=== PATIENT | male | born 1955 | race Caucasian/White ===

== ENCOUNTER → 2016-11-30 | Outpatient (CLI) | payer BC ==
--- NOTE | 2016-11-30 10:20 | MRI ---
EXAM DESCRIPTION: Lumbar Spine w/wo Contrast CLINICAL HISTORY: LOW BACK PAIN radiating to both lower extremities, worse on the right side. History of bladder carcinoma currently on chemotherapy COMPARISON: None Available. TECHNIQUE: MRI of the lumbar spine is performed according to our usual protocol with axial and sagittal multi sequence imaging. Postcontrast imaging after gadolinium enhancement was performed. FINDINGS: Vertebral and disc height is maintained with what appears to be a transitional S1 vertebral segment and rudimentary nonmobile S1-S2 disc space. Alignment is satisfactory with very slight retrolisthesis evident at the L5-S1 level. Disc desiccation and endplate irregularity is present at the lower three disc spaces with endplate edematous changes noted anteriorly at L4-5 and L5-S1 with some postcontrast enhancement in this region that does not have the appearance of metastatic disease. No intradural or intramedullary abnormalities are noted and the conus is positioned at the upper L1 level. L1-2: the disc is well hydrated. There is no loss of height. There is no bulging. The facets are unremarkable with no significant hypertrophy. There is no stenosis or impingement. L2-3: the disc is well hydrated. There is no loss of height. There is no bulging. The facets are unremarkable with no significant hypertrophy. There is no stenosis or impingement. L3-4: Disc desiccation with mild symmetric annular bulge and thecal sac in the lower range of normal with mild facet hypertrophy and adequate right and left neural foramina without severe stenosis. L4-5: Advanced disc degeneration with broad-based annular bulge and advanced facet hypertrophy. AP diameter canal stenosis is accentuated by mild epidural lipomatosis posterior to the thecal sac. Mildly narrowed left L4 neural foramen and moderately narrowed multifactoral right L4 neural foramen. L5-S1: Advanced disc degeneration and desiccation with broad-based annular bulge and advanced facet arthropathy with thecal sac lower limits of normal with moderate bilateral L5 foraminal narrowing on a multifactorial basis without lateralizing herniation. Postcontrast imaging demonstrates enhancement related to the endplates at L4-5 and L5-S1 without a pattern to suggest metastatic disease from the patient's known bladder carcinoma. IMPRESSION: 1. Multilevel lower lumbar degenerative disc disease and facet arthropathy with annular bulge and thecal sac lower limits of normal at L3-4. 2. Moderate broad-based annular bulge and facet disease with a moderate AP diameter canal stenosis L4-5 and right greater than left foraminal stenosis endplate reactive edematous changes that demonstrates some enhancement within a nontumoral pattern. 3. Annular bulge L5-S1 with thecal sac lower limits of normal with moderate bilateral L5 foraminal narrowing. 4. Transitional S1-S2 disc space that is nonmobile and rudimentary. 5. Normal examination from L2 to 3 cephalad. Electronically signed by: Zafar Walters MD 11/30/2016 10:12 AM CDT
== END | disposition home or self-care (01) ==
LOC: MRI 06:55
DX: M47.896 Other spondylosis, lumbar region (principal)

== ENCOUNTER 2017-05-28 04:04 | Emergency (ER) | payer BC ==
[2017-05-28] MEDS ORDERED: SODIUM CHLORIDE 0.9% 1000ML 0 ML ONE (04:08)
--- NOTE | 2017-05-28 04:20 | ED.PDOC ---
History of Present Illness - General Chief Complaint: Problem Stated Complaint: gross hematuria Time Seen by Provider: 05/28/17 04:12 Source: patient Exam Limitations: no limitations - History of Present Illness Initial Comments: Aric Viera 62 y/o male stated that he had biopsy of his urinary bladder in [place], [place] hospital today by Urologist Dr. Alonzo and tonight was passing out blood clots on urinating.Stated has Urinary bladder cancer underwent chemotherapy and had repeat biopsy of his bladder today at [facility]. Timing/Duration: this evening Quality: sharpness, stabbing Onset Location: suprapubic Radiation: none Activites at Onset: none Prior abdominal problems: none Sexual intercourse history: not active Improving Factors: nothing Worsening Factors: other - urination Associated Symptoms: other - see hpi Allergies/Adverse Reactions: Allergies NO KNOWN ALLERGY Allergy (Verified 05/28/17 04:43) Home Medications: Ambulatory Orders Aliskiren Fumarate [Tekturna] 300 mg PO BEDTIME 12/21/14 Aspirin [Baby Aspirin] 81 mg PO DAILY 12/21/14 Carvedilol [Coreg] 12.5 mg PO DAILY 12/21/14 Cholecalciferol [Vitamin D3] 5,000 unit PO DAILY 12/21/14 Levothyroxine Sodium 150 mcg PO DAILY 12/21/14 Metformin HCl [Glucophage] 1,000 mg PO BID 12/21/14 Pramipexole Dihydrochloride [Pramipexole Dihydrochlori] 0.25 mg PO BID 12/21/14 Ramipril [Altace] 40 mg PO DAILY 12/21/14 Rosuvastatin Calcium [Crestor] 10 mg PO DAILY 12/21/14 Sitagliptin Phosphate [Januvia] 100 mg PO DAILY 12/21/14 Fenofibric Acid [Trilipix] 135 mg PO DAILY 12/22/14 Azithromycin 500 mg PO DAILY #7 tab 08/14/15 Ipratropium/Albuterol Inhaler [Combivent Respimat 20-100 Mcg/Act] 2 puff INH RTQID #1 inh 08/14/15 predniSONE [Prednisone] 20 mg PO DAILY #5 tab 08/14/15 Review of Systems - Review of Systems Constitutional: States: no symptoms reported EENTM: States: no symptoms reported Respiratory: States: no symptoms reported Cardiology: States: no symptoms reported Gastrointestinal/Abdominal: States: no symptoms reported Genitourinary: States: see HPI Past Medical History (General) - Patient Medical History Hx Stroke: No Hx Cardiac Disorders: Yes - cardiac stent Hx Congestive Heart Failure: No Hx Hypertension: Yes Hx Thyroid Disease: Yes Hx Diabetes: Yes Hx Cancer: Yes - Urinary bladder Surgical History: tonsillectomy, other - biopsy urinary bladder,cardiac stents - Vaccination History Hx Influenza Vaccination: No Hx Pneumococcal Vaccination: No - Social History Hx Tobacco Use: Yes Family Medical History - Family History Father Living Status: Hx Family Diabetes: Yes Hx Family Cancer: Yes - colon;Thyroid-mom Physical Exam - Physical Exam General Appearance: Alert, Anxious, Restless Eyes, Ears, Nose, Throat Exam: PERRL/EOMI, normal ENT inspection Neck: non-tender, full range of motion, supple Cardiovascular/Respiratory: regular rate, rhythm, no M/R/G, normal peripheral pulses Gastrointestinal/Abdominal: soft, tenderness - suprapubic area bladder distended Male Genital Exam: normal genitalia Back Exam: no CVA tenderness, no vertebral tenderness Extremity: no pedal edema, no calf tenderness Neurologic: alert, oriented x 3 Skin Exam: normal color, warm/dry Progress - Progress Progress: 05/28/17 05:14 Bladder irrigation by the nurses with bloody urine mixed with blood clots 1200 cc bloody output admixed with saline irrigation 05/28/17 05:19 Vital Signs - 8 hr 05/28/17 04:05 Temperature 97.4 F L Pulse Rate [ 114 H monitor] Respiratory 22 Rate Blood Pressure 166/97 [Left Arm] O2 Sat by Pulse 100 Oximetry 05/28/17 05:53 Laboratory Tests 05/28/17 05/28/17 05/28/17 04:45 04:45 04:45 WBC 9.3 RBC 3.48 L Hgb 12.1 L Hct 34.6 L MCV 99.4 H MCH 34.7 H MCHC 34.9 RDW 12.9 Plt Count 173 MPV 8.9 Absolute Neuts (auto) 8.10 H Absolute Lymphs (auto) 0.70 L Absolute Monos (auto) 0.50 Absolute Eos (auto) 0.10 Absolute Basos (auto) 0.00 Neutrophils % 86.4 H Lymphocytes % 7.4 L Monocytes % 5.1 Eosinophils % 0.7 L Basophils % 0.4 PT INR PTT (SP) 25.8 Sodium 132 L Potassium 4.4 Chloride 101 Carbon Dioxide 21 Anion Gap 14.4 BUN 22 H Creatinine 1.73 H BUN/Creatinine Ratio 12.7 Random Glucose 279 H Serum Osmolality 277.9 Calcium 9.5 Total Bilirubin 0.7 AST 27 ALT 20 Alkaline Phosphatase 39 L Serum Total Protein 6.4 Albumin 4.1 Globulin 2.3 Albumin/Globulin Ratio 1.8 05/28/17 04:45 WBC RBC Hgb Hct MCV MCH MCHC RDW Plt Count MPV Absolute Neuts (auto) Absolute Lymphs (auto) Absolute Monos (auto) Absolute Eos (auto) Absolute Basos (auto) Neutrophils % Lymphocytes % Monocytes % Eosinophils % Basophils % PT 12.4 INR 1.100 PTT (SP) Sodium Potassium Chloride Carbon Dioxide Anion Gap BUN Creatinine BUN/Creatinine Ratio Random Glucose Serum Osmolality Calcium Total Bilirubin AST ALT Alkaline Phosphatase Serum Total Protein Albumin Globulin Albumin/Globulin Ratio - Results/Orders Results/Orders: Laboratory Tests 05/28/17 05/28/17 05/28/17 04:45 04:45 04:45 WBC 9.3 RBC 3.48 L Hgb 12.1 L Hct 34.6 L MCV 99.4 H MCH 34.7 H MCHC 34.9 RDW 12.9 Plt Count 173 MPV 8.9 Absolute Neuts (auto) 8.10 H Absolute Lymphs (auto) 0.70 L Absolute Monos (auto) 0.50 Absolute Eos (auto) 0.10 Absolute Basos (auto) 0.00 Neutrophils % 86.4 H Lymphocytes % 7.4 L Monocytes % 5.1 Eosinophils % 0.7 L Basophils % 0.4 PT INR PTT (SP) 25.8 Sodium 132 L Potassium 4.4 Chloride 101 Carbon Dioxide 21 Anion Gap 14.4 BUN 22 H Creatinine 1.73 H BUN/Creatinine Ratio 12.7 Random Glucose 279 H Serum Osmolality 277.9 Calcium 9.5 Total Bilirubin 0.7 AST 27 ALT 20 Alkaline Phosphatase 39 L Serum Total Protein 6.4 Albumin 4.1 Globulin 2.3 Albumin/Globulin Ratio 1.8 05/28/17 04:45 WBC RBC Hgb Hct MCV MCH MCHC RDW Plt Count MPV Absolute Neuts (auto) Absolute Lymphs (auto) Absolute Monos (auto) Absolute Eos (auto) Absolute Basos (auto) Neutrophils % Lymphocytes % Monocytes % Eosinophils % Basophils % PT 12.4 INR 1.100 PTT (SP) Sodium Potassium Chloride Carbon Dioxide Anion Gap BUN Creatinine BUN/Creatinine Ratio Random Glucose Serum Osmolality Calcium Total Bilirubin AST ALT Alkaline Phosphatase Serum Total Protein Albumin Globulin Albumin/Globulin Ratio Discuss with Dr. Alonzo-Oncologic Urologist and he will see patient at his clinic today 0930 H and may go with POV Departure - Departure Clinical Impression: Postoperative hemorrhage involving genitourinary system following genitourinary procedure, Gross hematuria, History of bladder cancer Time of Disposition: 06:43 Disposition: Discharge to Home or Self Care Condition: Fair Departure Forms: ED Discharge - Pt. Copy, Patient Portal Self Enrollment Referrals: Jayro Chong MD [Primary Care Provider] - 1-2 Weeks Home Medications: Ambulatory Orders Aliskiren Fumarate [Tekturna] 300 mg PO BEDTIME 12/21/14 Aspirin [Baby Aspirin] 81 mg PO DAILY 12/21/14 Carvedilol [Coreg] 12.5 mg PO DAILY 12/21/14 Cholecalciferol [Vitamin D3] 5,000 unit PO DAILY 12/21/14 Levothyroxine Sodium 150 mcg PO DAILY 12/21/14 Metformin HCl [Glucophage] 1,000 mg PO BID 12/21/14 Pramipexole Dihydrochloride [Pramipexole Dihydrochlori] 0.25 mg PO BID 12/21/14 Ramipril [Altace] 40 mg PO DAILY 12/21/14 Rosuvastatin Calcium [Crestor] 10 mg PO DAILY 12/21/14 Sitagliptin Phosphate [Januvia] 100 mg PO DAILY 12/21/14 Fenofibric Acid [Trilipix] 135 mg PO DAILY 12/22/14 Azithromycin 500 mg PO DAILY #7 tab 08/14/15 Ipratropium/Albuterol Inhaler [Combivent Respimat 20-100 Mcg/Act] 2 puff INH RTQID #1 inh 08/14/15 predniSONE [Prednisone] 20 mg PO DAILY #5 tab 08/14/15 Additional Instructions: Keep appointment with Oncologic Urologist at 0930H today
[2017-05-28] MEDS ORDERED: PROMETHAZINE HCL INJ 25 MG/ML VIAL IM ONE ×2 (04:21→06:34)
[2017-05-28] MEDS: MORPHINE SULFATE INJ 10 MG/ML VIAL IM ONE ×2 (04:28→06:38)
[2017-05-28] MEDS ORDERED: SODIUM CHLORIDE 0.9% 1000ML 1,000 ML ONE ×2 (05:12→05:36)
[2017-05-28 05:17] VITALS: TEMP 97.4
[2017-05-28 05:23] VITALS: O2SAT 98
[2017-05-28] MEDS ORDERED: LIDOCAINE 2 % GEL 5 ML TUBE TOP ONE ×3 (06:16→06:41)
[2017-05-28] MEDS ORDERED: LIDOCAINE 4% TOPICAL 50 ML BTTL TOP ONE (06:26)
[2017-05-28] MEDS ORDERED: LIDOCAINE 2% UROJET 20 MG/ML SYG TOP ONE (06:33)
[2017-05-28] MEDS ORDERED: MORPHINE SULFATE INJ 10 MG/ML VIAL IV ONE (06:34)
[2017-05-28] MEDS ORDERED: PROMETHAZINE HCL INJ 25 MG/ML VIAL ONE (06:37)
[2017-05-28] MEDS ORDERED: MORPHINE SULFATE INJ 10 MG/ML VIAL ONE (06:37)
[2017-05-28 07:08] VITALS: BP 113/74
== END 2017-05-28 07:03 | disposition home or self-care (01) ==
LOC: ER 04:04
DX: N99.820 Postprocedural hemorrhage of a genitourinary system organ or structure following a genitourinary system procedure (principal); C67.9 Malignant neoplasm of bladder, unspecified; I10 Essential (primary) hypertension; E07.9 Disorder of thyroid, unspecified; Z98.61 Coronary angioplasty status; Z79.82 Long term (current) use of aspirin; Z79.899 Other long term (current) drug therapy
CPT/HCPCS: 36415; 80053; 85025; 85610; 85730; J2270; J2550; J7030

== ENCOUNTER 2017-09-17 21:46 | Emergency (ER) | payer BC ==
[2017-09-17] MEDS ORDERED: FAMOTIDINE 20 MG TAB PO ONE (22:04)
[2017-09-17] MEDS ORDERED: predniSONE 20 MG TAB PO ONE (22:04)
[2017-09-17] MEDS ORDERED: ONDANSETRON ODT 8 MG TAB SL ONE (22:04)
[2017-09-17] MEDS ORDERED: OSELTAMIVIR 75 MG CAP PO ONE (22:05)
[2017-09-17] MEDS ORDERED: HYDROcodone 10MG/APAP 325MG 1 EA TAB PO ONE (22:05)
--- NOTE | 2017-09-17 22:09 | ED.PDOC ---
History of Present Illness - General Chief Complaint: GI Problem Stated Complaint: vomiting Time Seen by Provider: 09/17/17 21:56 Source: patient Exam Limitations: no limitations - History of Present Illness Initial Comments: the patient is 62-year-old male presenting to the emergency room secondary to a worsening of his chronic low back pain associated with generalized myalgias, a cough, mild runny nose, a mild headache, mild sore throat, and occasional nausea and vomiting over the last 24 hours. He has been taking Motrin and Tylenol for his low back painand so is technically not had any fever. No history significant history of COPD he does have a distant history of asthma. No chest pain and no shortness of breath. No abdominal pain. Back pain is unchanged in position from his chronic problems. He has a muscle relaxer from his primary care doctor written earlier in the week. Timing/Duration: 24 hours Severity: moderate Improving Factors: nothing Worsening Factors: nothing Associated Symptoms: cough, fever/chills, headaches, loss of appetite, malaise, nausea/vomiting Allergies/Adverse Reactions: Allergies NO KNOWN ALLERGY Allergy (Verified 05/28/17 04:43) Home Medications: Ambulatory Orders Aliskiren Fumarate [Tekturna] 300 mg PO BEDTIME 12/21/14 Aspirin [Baby Aspirin] 81 mg PO DAILY 12/21/14 Carvedilol [Coreg] 12.5 mg PO DAILY 12/21/14 Cholecalciferol [Vitamin D3] 5,000 unit PO DAILY 12/21/14 Levothyroxine Sodium 150 mcg PO DAILY 12/21/14 Metformin HCl [Glucophage] 1,000 mg PO BID 12/21/14 Pramipexole Dihydrochloride [Pramipexole Dihydrochlori] 0.25 mg PO BID 12/21/14 Ramipril [Altace] 40 mg PO DAILY 12/21/14 Rosuvastatin Calcium [Crestor] 10 mg PO DAILY 12/21/14 Sitagliptin Phosphate [Januvia] 100 mg PO DAILY 12/21/14 Fenofibric Acid [Trilipix] 135 mg PO DAILY 12/22/14 Azithromycin 500 mg PO DAILY #7 tab 08/14/15 Ipratropium/Albuterol Inhaler [Combivent Respimat 20-100 Mcg/Act] 2 puff INH RTQID #1 inh 08/14/15 predniSONE [Prednisone] 20 mg PO DAILY #5 tab 08/14/15 Review of Systems - Review of Systems Constitutional: States: fever - subjective, malaise EENTM: States: nose congestion, throat pain Respiratory: States: cough Cardiology: States: no symptoms reported Gastrointestinal/Abdominal: States: vomiting Genitourinary: States: no symptoms reported Musculoskeletal: States: see HPI, back pain Skin: States: no symptoms reported Neurological: States: headache - mild Endocrine: States: no symptoms reported All other Systems: No Change from Baseline Past Medical History (General) - Patient Medical History Hx Seizures: No Hx Stroke: No Hx Dementia: No Hx Asthma: No Hx of COPD: No Hx Cardiac Disorders: Yes - cardiac stent Hx Congestive Heart Failure: No Hx Pacemaker: No Hx Hypertension: Yes Hx Thyroid Disease: Yes Hx Diabetes: Yes Hx Gastroesophageal Reflux: No Hx Renal Disease: No Hx Cancer: Yes - Urinary bladder Hx of HIV: No Hx Hepatitis C: No Hx MRSA: No - Vaccination History Hx Tetanus, Diphtheria Vaccination: No Hx Influenza Vaccination: No Hx Pneumococcal Vaccination: No - Social History Hx Tobacco Use: Yes Hx Chewing Tobacco Use: No Hx Alcohol Use: Yes - social Hx Substance Use: No Hx Substance Use Treatment: No Hx Depression: No Hx Physical Abuse: No Hx Emotional Abuse: No Hx Suspected Abuse: No Family Medical History - Family History Father Living Status: Hx Family Diabetes: Yes Hx Family Cancer: Yes - colon;Thyroid-mom Physical Exam - Physical Exam General Appearance: Alert, No apparent distress Eye Exam: bilateral normal Ears, Nose, Throat: hearing grossly normal, nasal congestion, pharyngeal erythema Neck: full range of motion, supple, normal inspection Respiratory: no respiratory distress, no accessory muscle use, wheezing - scattered fine wheezes. No increased work of breathing. Minimal fine scattered rhonchi. No significant rails. Cardiovascular/Chest: normal peripheral pulses, regular rate, rhythm, no edema Peripheral Pulses: radial,right: 2+, radial,left: 2+, dorsalis pedis,right: 2+, dorsalis pedis,left: 2+ Gastrointestinal/Abdominal: non tender, soft Rectal Exam: deferred Back Exam: CVA tenderness (R), CVA tenderness (L) Extremity: normal range of motion, non-tender, normal inspection, no pedal edema , normal capillary refill Neurologic: continuity manager II-XII nml as tested, alert, normal mood/affect, oriented x 3 Skin Exam: normal color Comments: Vital Signs - 24 hr 09/17/17 22:06 Temperature 97.6 F Pulse Rate [ 84 Right] Respiratory 18 Rate Blood Pressure 193/94 [Left Arm] O2 Sat by Pulse 95 Oximetry Progress - Progress Progress: 09/17/17 22:10 the patient is a 62-year-old male presenting with a flare of his chronic back pain likely triggered by a viral syndrome. Flu is prevalent in the community so the patient will be treated empirically with Tamiflu for 5 days , as testing is currently unavailable. Additionally he is receiving 1 dose of prednisone here tonight. We will not continue this secondary to his diabetes. He needs to control his blood sugars well and he also needs to follow his blood pressures closely. His blood pressures were elevated here today however it is likely reactive in nature. The patient will be written for the Tamiflu as above. Additionally he needs to take Pepcid twice daily for the next 2 weeks to help reduce any stomach irritation with the medications and he will also be written for some Zofran to control nausea, some Fioricet for his low back pain, and an albuterol inhaler for any asthma flares in the future. The patient is to return to the emergency room for any significant acute worsening. He needs to follow up with his primary care doctor later this week and keep follow-up with his back doctor for his chronic back pain later this week. He needs to not take Tylenol when he is taking the Fioricet as it does have Tylenol in it. He needs to keep himself well hydrated. Departure - Departure Clinical Impression: Viral syndrome Chronic low back pain Qualifiers: Back pain laterality: bilateral Sciatica presence: unspecified whether sciatica present Qualified Code(s): M54.5 - Low back pain; G89.29 - Other chronic pain Disposition: Discharge to Home or Self Care Condition: Fair Departure Forms: ED Discharge - Pt. Copy, Patient Portal Self Enrollment Instructions: DI for Low Back Pain, DI for Viral Syndrome Diet: diabetic diet Activity: increase activity as tolerated Referrals: Jayro Chong MD [Primary Care Provider] - 1-5 Days Home Medications: Ambulatory Orders Aliskiren Fumarate [Tekturna] 300 mg PO BEDTIME 12/21/14 Aspirin [Baby Aspirin] 81 mg PO DAILY 12/21/14 Carvedilol [Coreg] 12.5 mg PO DAILY 12/21/14 Cholecalciferol [Vitamin D3] 5,000 unit PO DAILY 12/21/14 Levothyroxine Sodium 150 mcg PO DAILY 12/21/14 Metformin HCl [Glucophage] 1,000 mg PO BID 12/21/14 Pramipexole Dihydrochloride [Pramipexole Dihydrochlori] 0.25 mg PO BID 12/21/14 Ramipril [Altace] 40 mg PO DAILY 12/21/14 Rosuvastatin Calcium [Crestor] 10 mg PO DAILY 12/21/14 Sitagliptin Phosphate [Januvia] 100 mg PO DAILY 12/21/14 Fenofibric Acid [Trilipix] 135 mg PO DAILY 12/22/14 Azithromycin 500 mg PO DAILY #7 tab 08/14/15 Ipratropium/Albuterol Inhaler [Combivent Respimat 20-100 Mcg/Act] 2 puff INH RTQID #1 inh 08/14/15 predniSONE [Prednisone] 20 mg PO DAILY #5 tab 08/14/15 Additional Instructions: the patient is a 62-year-old male presenting with a flare of his chronic back pain likely triggered by a viral syndrome. Flu is prevalent in the community so the patient will be treated empirically with Tamiflu for 5 days , as testing is currently unavailable. Additionally he is receiving 1 dose of prednisone here tonight. We will not continue this secondary to his diabetes. He needs to control his blood sugars well and he also needs to follow his blood pressures closely. His blood pressures were elevated here today however it is likely reactive in nature. The patient will be written for the Tamiflu as above. Additionally he needs to take Pepcid twice daily for the next 2 weeks to help reduce any stomach irritation with the medications and he will also be written for some Zofran to control nausea, some Fioricet for his low back pain, and an albuterol inhaler for any asthma flares in the future. The patient is to return to the emergency room for any significant acute worsening. He needs to follow up with his primary care doctor later this week and keep follow-up with his back doctor for his chronic back pain later this week. He needs to not take Tylenol when he is taking the Fioricet as it does have Tylenol in it. He needs to keep himself well hydrated.
[2017-09-17 22:12] VITALS: O2SAT 95
[2017-09-17 22:35] VITALS: BP 182/89; TEMP 97.8
== END 2017-09-17 22:34 | disposition home or self-care (01) ==
LOC: ER 21:46
DX: G89.29 Other chronic pain (principal); M54.5 Low back pain; B34.9 Viral infection, unspecified; Z87.891 Personal history of nicotine dependence; I10 Essential (primary) hypertension; E11.9 Type 2 diabetes mellitus without complications; E07.9 Disorder of thyroid, unspecified; Z79.82 Long term (current) use of aspirin; Z79.899 Other long term (current) drug therapy

== ENCOUNTER → 2017-09-25 | Outpatient (CLI) | payer BC ==
--- NOTE | 2017-09-25 14:14 | MRI ---
EXAM DESCRIPTION: Cervical Spine: MRI. CLINICAL HISTORY: RADICULOPATHY COMPARISON: MR scan lumbar spine on the same visit. TECHNIQUE: Multiplanar MRI, multiple sequences, non-contrast High-field. FINDINGS: Minimal hypertrophy of the atlantoaxial joint. Minimal narrowing of the anterior epidural space posterior to the proximal odontoid tip. Atlantooccipital facets are negative. C2-3: Minimal disc desiccation. No bulging. Canal and foramina are patent. Facets are negative. C3-4: Minimal disc desiccation. Tiny posterior midline bulge 2 mm abutting the cord. Mild canal narrowing. Bilateral neural foramina are patent. Facets are unremarkable. C4-5: Disc desiccation and minimal posterior 2 mm disc bulge abutting the cord. Bright T2 signal in the posterior bulging segment of the disc. Bilateral neural foramina are patent. Facets are negative. C5-6: Disc desiccation. Anterior bulging and endplate ridging. Minimal posterior 2 mm bulge abutting the cord. Mild left neural foraminal narrowing. Right neuroforamen patent. Facets are negative. C6-7: Disc desiccation and minimal disc space loss. Posterior midline 3 to 4 mm protrusion impressing on the anterior cord in the midline. Moderate canal narrowing. Right uncinate spur with mild neural foraminal narrowing. Left neuroforamen is patent. Minimal arthrosis left facet. Minimal hypertrophy of the posterior ligaments. Normal signal in the remaining discs with no bulging. Disc spaces preserved. Canal and neural foramina are patent. Facets negative. Spondylosis at T2-3 with anterior disc bulge. Posterior disc bulge. Canal and bilateral neural foraminal narrowing. No cord compression or cord edema. Spine is normally lordotic. Base of the cerebellar tonsils is above the foramen magnum. Paravertebral soft tissues negative.. Vertebral bodies are not compressed at any level. Decreased fatty T1 marrow signal in the C4-C5, C6, T1, and T2 vertebral bodies. Increased signal in these vertebral bodies on the inversion recovery sequence. . No definitive lesions. IMPRESSION: 1. Posterior midline protrusion of the C6-7 disc impressing on the cord and moderate canal narrowing. No cord edema. No definite nerve root impingement. Neuroforamina are not stenotic. 2. Posterior C4-5 disc bulge with annular fissure and mild canal narrowing. Posterior midline C3-4 disc bulge abutting the cord. Posterior C5-6 disc bulge abutting the cord. No canal or neural foraminal stenosis at these levels. 3. Marrow reconversion more likely than infiltrative process in some of the cervical and the upper thoracic vertebra. Correlate clinically for causes of marrow reconversion such as cigarette smoking or steroid therapy. Electronically signed by: Roberto Carlos Boyd MD 09/25/2017 2:13 PM [facility]
--- NOTE | 2017-09-25 15:35 | MRI ---
EXAM DESCRIPTION: Lumbar Spine w/wo Contrast MRI. CLINICAL HISTORY: LOW BACK PAIN, RADICULOPATHY COMPARISON: MRI lumbar spine 11/30/2016. TECHNIQUE: Multiplanar, multiple standard sequences, non contrast MRI, lumbar spine. FINDINGS: Again noted is a transitional partially lumbarized S1 segment with rudimentary S1-S2 disc with normal signal and no bulging. The L5-S1 disc can be seen on axial T2 scan image 10/27. Multiple focal areas of marrow infiltration at every level of the lumbar spine and upper sacrum indicated by focal or diffuse decreased T1 signal with corresponding bright inversion recovery signal. This is a new finding since the prior study. Compression of the L2 vertebral body with diffuse T1 signal loss and almost uniform signal increase on the inversion recovery sequence. Bilateral pedicle bases also show increased inversion recovery signal. More elevation of the inferior endplate then depression of the superior endplate. Possible retropulsion of the posterior mid vertebral body 4.4 mm which is abutting the thecal sac with canal diameter 10 mm. However, the posterior cortex appears to be breached by expansile mass abutting the thecal sac on the axial image at this level on T1 and T2 sequences. Conus terminates at L1, above this stenosis. These infiltrative type lesions are also seen in the included sacrum, bilateral iliac bones, and the included T12 vertebral body and right T12 pedicle. Cystic lesion noted in the posterior superior pole left kidney. The entire kidneys are not included on the examination. L5-S1: Anterior Modic type II endplate reactive changes more prominent in the midline and to the left of midline. Disc spur complex encroaching on the left foramen abutting the exiting left L5 nerve. Gas formation in the anterior disc. Infiltrative lesions in the L5 vertebral body and S1. Posterior disc bulge 4 mm abutting the descending left S1 nerve above the left subarticular recess. Left facet arthrosis and bilateral flavum ligament hypertrophy. Mild to moderate right foraminal narrowing. L4-5: Disc desiccation and grade 1 anterolisthesis 2 mm. Posterior 3 mm disc bulge past the superior L5 endplate abutting the thecal sac and bilateral narrowing of the subarticular recesses. Minimal facet arthrosis and bilateral posterior ligament hypertrophy. AP canal diameter 6 mm. Modic type II endplate reactive changes to the right of midline with disc spur complex encroaching on the right foramen and impingement of the exiting right L4 nerve. Moderate left foraminal narrowing. Infiltrative lesions in the L4 vertebral body and right lamina, with soft tissue edema abutting the lamina L3-4: Disc desiccation and no posterior bulging. Schmorl's node superior L4 endplate. Posterior tiny disc bulge abutting the thecal sac. Bilateral facet arthrosis and minimal ligament hypertrophy with a V-shaped canal, nearly stenotic moderate right foraminal narrowing and mild left foraminal narrowing. Infiltrative lesions in the L3 vertebral body. L2-3: Minimal disc desiccation. Disc bulge following the expanding posterior cortex of L2. Mild canal narrowing. Bilateral mild foraminal narrowing. Mild hypertrophy of the posterior ligaments with T-shaped canal. L1-2: Minimal disc desiccation with no significant bulging. Bilateral foramina are patent. Flavum ligaments and facets unremarkable. Infiltrative lesion in the posterior right L1 lamina with infiltrative lesions also in the body. T12-L1: Minimal disc desiccation no bulging. Canal and foramina are patent. Facets and ligaments unremarkable. Paravertebral soft tissues showing edema abutting the right L4 lamina lesion. Expansile mass in the right L3 transverse process with surrounding soft tissue edema.. No other Vertebral bodies are compressed at any level. IMPRESSION: 1. Multiple focal and diffuse T1 low signal lesions in the vertebral bodies, posterior elements, sacrum and iliac bone. Almost all lesions are bright on inversion recovery sequence. Not present on the prior study. Appearance and distribution suggestive of metastatic disease. Suggested primary tumor source is would be lung, prostate gland, bowel, and kidneys. With results of the cervical spine MRI in mind, consider radionuclide whole body bone imaging, CT scans with IV contrast. Chest abdomen and pelvis. Also consider MRI scan thoracic spine. 2. Spondylosis at L5-S1 and L4-5 has progressed since the prior MRI scan. Posterior L5-S1 disc bulge abutting the descending left S1 nerve. Moderate canal narrowing. Posterior broad-based bulge of the L4-5 disc and grade 1 anterolisthesis with multifocal severe canal stenosis. Right side spondylosis with impingement of the exiting right L4 nerve in the foramen. 3. Narrowing of the canal at other levels predominantly due to hypertrophic flavum ligaments and facet arthrosis with L3-4 Canal nearly stenotic. 4. Compression fracture L2 is most likely pathologic with posterior retropulsion of bone versus posterior cortical breaching by tumor, borderline mild canal stenosis. CRITICAL COMMUNICATION: The critical value was discussed directly by phone with MELISSA Douglas for Dr. Hinkle, at approximately 1435 hours, on September 25, 2017. Electronically signed by: Roberto Carlos Boyd MD 09/25/2017 3:[address] [facility]
== END ==
LOC: MRI 07:39
PROVIDERS: ATTEND Physical Medicine & Rehabilitation
DX: M54.12 Radiculopathy, cervical region (principal); S32.020A Wedge compression fracture of second lumbar vertebra, initial encounter for closed fracture; M48.062 Spinal stenosis, lumbar region with neurogenic claudication; M47.897 Other spondylosis, lumbosacral region

== ENCOUNTER → 2017-09-30 | Outpatient (CLI) | payer BC ==
--- NOTE | 2017-09-30 16:46 | CT ---
EXAM DESCRIPTION: Abdomen/Pelvis w/Contrast: Computed Tomography. CLINICAL HISTORY: SECONDARY MALIGNANT NEOPLASM OF BONE COMPARISON: CT scan chest with IV contrast on this visit. CT scan Abdomen and pelvis without and with IV contrast 05/09/2016 and 06/20/2016. TECHNIQUE: Spiral-axial scans at 5.0 mm intervals through the abdomen and pelvis, after nonionic IV contrast. No oral contrast. Axial 0.6 mm reconstructions. Coronal and sagittal 2.0 mm reconstructions. Delayed scans, liver through the pelvis. Axial-spiral 5mm. No adverse reactions. Total Exam DLP: 3845.06 mGy-cm. This exam was performed according to our departmental dose-optimization program which includes automated exposure control, adjustment of the mA and/or kV according to patient size and/or use of iterative reconstruction technique; to reduce radiation dose to as low as reasonably achievable (ALARA). FINDINGS: Liver, Stomach, Spleen, Adrenal Glands: Multiple low-density lesions in all lobes and segments of the liver somewhat indistinct borders less than 2 cm in diameter, even more indistinct on the delayed images. No definite dilation. These are not seen on the prior study. Long axis of the right lobe is 19.7 cm. Small lesion in the inferior spleen stable. Enlargement of the left adrenal gland unchanged. Stomach negative. Pancreas, Gallbladder, Ducts: Gallbladder visualized. No definite dilation. Pancreas negative. Normal surrounding fat.. Kidneys and Ureters: Upper pole posterior cortex left kidney cyst, otherwise unremarkable and stable. Inferior pararenal fascial thickening has increased since the prior study. Mesentery: Increased inferior pararenal fascial thickening. Increased bilateral paracolic gutter fascial thickening. Aorta: Minimal atherosclerotic calcification infrarenal aorta with minimal ectasia. No para-aortic mass. Small Bowel: Normal caliber with minimal gas. Terminal Ileum/Cecum: Normal caliber. Normal caliber of the appendix containing gas. Gas in the cecum. Colon: Diffuse fecal material proximal and mid colon. Marked redundancy of the sigmoid colon with diverticula but no complications. No obstruction.. Pelvic Organs: Prostate gland abuts the urinary bladder and seminal vesicles. No fluid in the anterior peritoneal reflection. Borderline bladder wall thickening. No separate pelvic masses. Spine and Bony Pelvis: Gas formation in the L5-S1 disc. Schmorl's node inferior L4 endplate with grade 1 anterolisthesis L4-5. Compression fracture central L2 vertebral body, with possible lytic lesion in the posterior cortex. No definite retropulsion. Lytic lesion posterior L1 vertebral body also in the base of the left pedicle. Lytic lesion anterior T10 vertebral body superior and T9 vertebral body and posterior T8 vertebral body. Lytic lesion anterior right acetabulum. Right iliac bone abutting the SI joint. Smaller lytic lesions left iliac bone. Abdominal Wall/Back Soft Tissues: Bilateral fatty inguinal hernias larger on the left. IMPRESSION: 1. Multiple lesions nonenhancing in the entire liver less than 2 cm in diameter and suggestive of metastases. Right lobe is enlarged. No definite ascites. Not present on the prior study. Stable lesion in the inferior spleen is probably a cyst. No definite ascites. 2. Multiple lytic lesions in the lower thoracic and lumbar spine sacrum and pelvis are also most likely metastases. Not present on the prior study. 3. Scattered fascial thickening in the abdomen including inferior pararenal spaces and paracolic gutters. No definite masses, but cannot exclude peritoneal carcinomatosis. 4. Bilateral fatty inguinal hernias stable since the prior study. Electronically signed by: Roberto Carlos Boyd MD 09/30/2017 4:45 PM [facility]
--- NOTE | 2017-09-30 17:15 | CT ---
EXAM DESCRIPTION: Chest w/Contrast : Computed Tomography. CLINICAL HISTORY: SECONDARY MALIGNANT NEOPLASM OF BONE. NO KNOWN PRIMARY. COMPARISON: CT scan of the abdomen and pelvis on this visit. TECHNIQUE: Spiral-axial scans at 5.0 mm intervals through the lungs and thorax with IV contrast. 2.5 mm lung algorithm axial reconstructions. Oral and sagittal 2.0 Mm reconstructions. No adverse reactions. Total Exam DLP: 760.62 mGy-cm. This exam was performed according to our departmental dose-optimization program which includes automated exposure control, adjustment of the mA and/or kV according to patient size and/or use of iterative reconstruction technique; to reduce radiation dose to as low as reasonably achievable (ALARA). FINDINGS: Enlarged lymph node with lobular border in the AP window 10 mm short axis. Second lymph node more inferior measures 1.2 cm short axis. A conglomeration of abnormal lymph nodes in the superior and inferior left hilum with short axis lymph node measurements 18 and 14 mm. No enlarged lymph node in the azygos region and subcarinal region right hilum or paratracheal nodes. Thickening of the esophagus and containing fluid from the distal trachea to the gastroesophageal junction. Thyroid gland was not well seen. No soft tissue masses in the base of the neck. No enlarged axillary lymph nodes. No chest wall masses. Posterior dependent atelectasis in the bilateral lower lobes more in the left. Minimal pleural thickening. Small indistinct nodule versus focal infiltrate in the right upper lobe measuring approximately 9 mm (series 5, image 29). Also a vague, left hilar infiltrate surrounding a possible central nodule of about the same size on image 33. Scarring in the inferior lingula. 5 mm subpleural soft tissue nodule posterior superior segment right lower lobe (image 45). Similar nodule 4 mm diameter right lower lobe subpleural and posterior at image 60. Multiple lytic lesions are noted in the thoracic vertebral bodies particularly T3. No compression fractures. No definite rib or sternal lytic lesions lytic lesion noted in the inferior left scapula. Also possible lytic lesion in the right humeral head. IMPRESSION: 1. Adenopathy in the left hilum, left AP window. Question of small perihilar nodules on the left with infiltrates and nodules also noted in the right lung. Esophageal thickening diffusely with fluid in the inferior two thirds of the organ. Consider endoscopy and correlation with clinical history. 2. Lytic lesions in the left shoulder and thoracic spine but no compression fractures of the thoracic spine. CRITICAL COMMUNICATION: The critical value was discussed directly by phone with Dr. Jayro Chong at approximately 1710 hours, on September 30, 2017. Electronically signed by: Roberto Carlos Boyd MD 09/30/2017 5:14 PM [facility]
== END ==
LOC: LAB.O 12:40
PROVIDERS: ATTEND Family Medicine
DX: C67.9 Malignant neoplasm of bladder, unspecified (principal); C79.51 Secondary malignant neoplasm of bone; M54.16 Radiculopathy, lumbar region; I10 Essential (primary) hypertension; R59.9 Enlarged lymph nodes, unspecified

== ENCOUNTER → 2017-10-03 | Outpatient (CLI) | payer BC ==
--- NOTE | 2017-10-03 16:23 | NM ---
WHOLE-BODY NUCLEAR BONE SCAN HISTORY: Secondary neoplasm of bone COMPARISON: None TECHNIQUE: Whole body scintigraphic imaging in anteroposterior as well as posteroanterior orientations, following intravenous demonstration of 26.5 mCi of technetium 99m labeled MDP. Smaller [id number] imaging also performed for cranium and thoracolumbar spine FINDINGS: Subtly increased foci of radiotracer deposition along the calvarium, in right eighth rib, in left greater trochanter, right femoral neck, and subtly but diffusely along mid to distal aspect of the left femur. Symmetrically increased radiotracer deposition in the shoulder, sternoclavicular, sacroiliac joints are more consistent with degenerative change. Unremarkable cortical radiotracer retention in both kidneys. IMPRESSION: Subtle to mild foci of radiotracer accumulation along the calvarium, a right rib, in both proximal femurs as well as distal left femur are concerning for potential metastasis. The extended appearance of the distal left femoral lesion however may be more compatible with underlying inflammatory process. Electronically signed by: Anoop Gar MD 10/03/2017 4:23 PM [facility]
== END ==
LOC: NM 09:40
PROVIDERS: ATTEND Family Medicine
DX: C79.51 Secondary malignant neoplasm of bone (principal); C67.9 Malignant neoplasm of bladder, unspecified; M54.16 Radiculopathy, lumbar region

== ENCOUNTER 2017-10-04 11:19 | Emergency (ER) | payer BC ==
[2017-10-04] MEDS ORDERED: SODIUM CHLORIDE 0.9% 1000ML 1,000 ML IVS ONE (11:46)
--- NOTE | 2017-10-04 11:56 | ED.PDOC ---
History of Present Illness - General Chief Complaint: General Time Seen by Provider: 10/04/17 11:45 Source: family Exam Limitations: clinical condition - HE IS CONFUSED - History of Present Illness Timing/Duration: 24 hours Severity: moderate Improving Factors: nothing Worsening Factors: nothing Associated Symptoms: fever/chills, other - NO APPETITIE Allergies/Adverse Reactions: Allergies NO KNOWN ALLERGY Allergy (Verified 05/28/17 04:43) Home Medications: Ambulatory Orders Aliskiren Fumarate [Tekturna] 300 mg PO BEDTIME 12/21/14 Aspirin [Baby Aspirin] 81 mg PO DAILY 12/21/14 Carvedilol [Coreg] 12.5 mg PO DAILY 12/21/14 Cholecalciferol [Vitamin D3] 5,000 unit PO DAILY 12/21/14 Levothyroxine Sodium 150 mcg PO DAILY 12/21/14 Metformin HCl [Glucophage] 1,000 mg PO BID 12/21/14 Pramipexole Dihydrochloride [Pramipexole Dihydrochlori] 0.25 mg PO BID 12/21/14 Ramipril [Altace] 40 mg PO DAILY 12/21/14 Rosuvastatin Calcium [Crestor] 10 mg PO DAILY 12/21/14 Sitagliptin Phosphate [Januvia] 100 mg PO DAILY 12/21/14 Fenofibric Acid [Trilipix] 135 mg PO DAILY 12/22/14 Azithromycin 500 mg PO DAILY #7 tab 08/14/15 Ipratropium/Albuterol Inhaler [Combivent Respimat 20-100 Mcg/Act] 2 puff INH RTQID #1 inh 08/14/15 predniSONE [Prednisone] 20 mg PO DAILY #5 tab 08/14/15 Review of Systems - Review of Systems Constitutional: States: chills, fever, malaise, weakness EENTM: Denies: ear pain, nose pain, throat swelling Respiratory: States: short of breath. Denies: cough Cardiology: Denies: chest pain, edema, palpitations, syncope Gastrointestinal/Abdominal: Denies: abdominal pain, constipation, diarrhea, nausea, vomiting Genitourinary: Denies: dysuria, frequency, hematuria Musculoskeletal: States: back pain. Denies: joint pain, joint swelling Skin: Denies: change in color, change in hair/nails Neurological: States: weakness. Denies: numbness, paresthesia Endocrine: Denies: increased hunger, increased thirst, increased urine Hematologic/Lymphatic: Denies: blood clots, easy bleeding All other Systems: Reviewed and Negative Past Medical History (General) - Patient Medical History Hx Seizures: No Hx Stroke: No Hx Dementia: No Hx Asthma: No Hx of COPD: No Hx Cardiac Disorders: Yes - cardiac stent Hx Congestive Heart Failure: No Hx Pacemaker: No Hx Hypertension: Yes Hx Thyroid Disease: Yes Hx Diabetes: Yes Hx Gastroesophageal Reflux: No Hx Renal Disease: No Hx Cancer: Yes - Urinary bladder Hx of HIV: No Hx Hepatitis C: No Hx MRSA: No - Vaccination History Hx Tetanus, Diphtheria Vaccination: No Hx Influenza Vaccination: No Hx Pneumococcal Vaccination: No - Social History Hx Tobacco Use: Yes Hx Chewing Tobacco Use: No Hx Alcohol Use: Yes - social Hx Substance Use: No Hx Substance Use Treatment: No Hx Depression: No Hx Physical Abuse: No Hx Emotional Abuse: No Hx Suspected Abuse: No Family Medical History - Family History Father Living Status: Hx Family Diabetes: Yes Hx Family Cancer: Yes - colon;Thyroid-mom Physical Exam - Physical Exam General Appearance: Frail, Lethargic, Ill Appearing Eye Exam: left normal Ears, Nose, Throat: hearing grossly normal, other - DRY MM Neck: non-tender, full range of motion, supple Respiratory: chest non-tender, lungs clear, normal breath sounds, no respiratory distress Cardiovascular/Chest: normal peripheral pulses, regular rate, rhythm, no edema, no gallop Gastrointestinal/Abdominal: normal bowel sounds, non tender, soft Back Exam: decreased range of motion, vertebral tenderness Extremity: normal range of motion, non-tender, normal inspection Neurologic: motor weakness - DIFFUSELY WEAK, depressed affect, disoriented x 3 - OREINTED TO SELF, APPEARS EXAUSTED Skin Exam: warm/dry, mottled Lymphatic: axilla node tender (R), axilla node tender (L), inguinal node tender (R), inguinal node tender (L) Progress - Progress Progress: 10/04/17 12:00 CHART REVIEW SHOWS A RECENT MARKED HYPERCALCEMIA WITH A CR OF 1.55 AND AN ELEVATED CREATININE. WITH NEW METASTATIC FRACTURES, ADENOPATHY. HERE WITH RECENT DIAGNOSIS OF METASTATIC CA. UNSURE PRIMARY WAS SENT OVER FROM THE CLINIC FOR EVAL FOR POOR INTAKE, INCREASED CONFUSION, AMS, WEAKNESS. WOULD BE CONCERNED FOR ELECTROLYTE DERANGEMENT, ENCEPHALOPATHY, ICH/MASS, DEHYDRATION, INFECTIOUS ETIOLOGY. 10/04/17 13:03 PT HAS MARKED HYPERCALCEMIA, ELEVATED TROP (WILL GIVE ASPIRIN) ELEVATED CR WITH ELEVATED BUN SUGGESTING PRE-RENAL AZOTEMIA. DENIES CHEST PAIN AT THIS TIME. HE IS ALSO ALSO HYPONATREMIC. HE WILL NEED ADMISSION HOWEVER GIVEN THE ELEVATED TROP HE NEEDS TO BE AT PLACE THAT CAN WORK HIM FROM A CARDIOLOGY STANDPOINT. I HAVE DISCUSSED WITH ANKIT NORWOOD (HOSPITALIST [employer]OVERAGE IN [place]) HE AGREES WITH THE NEED FOR TRANSFER. WILL DO HEPARIN BOLUS AND DRIP IF THE CT OF THE HEAD IS UNREMARKABLE. 10/04/17 13:12 10/04/17 13:[address] IN TRANSFER BY DR BAHENA. WILL TRANSFER TO [facility]. 10/04/17 14:25 WE DO NOT HAVE PAMIDRONATE HERE FOR THE TREATMENT OF HYPERCALCEMIA. - Results/Orders Results/Orders: Laboratory Tests 10/04/17 10/04/17 10/04/17 11:45 11:46 11:46 WBC 7.5 RBC 4.57 L Hgb 14.3 Hct 40.9 L MCV 89.5 MCH 31.2 H MCHC 34.9 RDW 13.8 Plt Count 184 MPV 8.6 Absolute Neuts (auto) 6.20 Absolute Lymphs (auto) 0.60 L Absolute Monos (auto) 0.70 Absolute Eos (auto) 0.00 Absolute Basos (auto) 0.00 Neutrophils % 82.2 H Lymphocytes % 8.0 L Monocytes % 9.4 H Eosinophils % 0.2 L Basophils % 0.2 Sodium 126 L Potassium 3.8 Chloride 86 L Carbon Dioxide 29 Anion Gap 14.8 BUN 58 H Creatinine 2.49 H BUN/Creatinine Ratio 23.3 H Random Glucose 130 H Serum Osmolality 271.3 L Lactic Acid Calcium 15.9 H* Total Bilirubin 0.8 AST 56 H ALT 25 Alkaline Phosphatase 140 H Troponin I 0.21 H* Serum Total Protein 6.7 Albumin 3.2 Globulin 3.5 Albumin/Globulin Ratio 0.9 L Salicylates Acetaminophen Ethyl Alcohol 10/04/17 10/04/17 12:14 12:14 WBC RBC Hgb Hct MCV MCH MCHC RDW Plt Count MPV Absolute Neuts (auto) Absolute Lymphs (auto) Absolute Monos (auto) Absolute Eos (auto) Absolute Basos (auto) Neutrophils % Lymphocytes % Monocytes % Eosinophils % Basophils % Sodium Potassium Chloride Carbon Dioxide Anion Gap BUN Creatinine BUN/Creatinine Ratio Random Glucose Serum Osmolality Lactic Acid 1.6 Calcium Total Bilirubin AST ALT Alkaline Phosphatase Troponin I Serum Total Protein Albumin Globulin Albumin/Globulin Ratio Salicylates < 4.0 Acetaminophen < 10.0 L Ethyl Alcohol < 5.40 - EKG/XRAY/CT EKG: Sinus - RYTHM AT 82, LEFT AXIS DEVIATION, MEETS CRITERIA FOR LVH. NO MARKED ST ABNORMALITIES, IMPRESSION SINUS RYTHM WITH A LEFT AXIS DEVIATION, no ST T wave changes Departure - Departure Clinical Impression: NSTEMI, initial episode of care, Hypercalcemia, Acute confusional state of metabolic origin, Acute metabolic encephalopathy, Prerenal acute renal failure, Hyponatremia Acute kidney failure Qualifiers: Acute renal failure type: unspecified Qualified Code(s): N17.9 - Acute kidney failure, unspecified Disposition: Transfer to Hospital Condition: Serious Departure Forms: ED Discharge - Pt. Copy, Patient Portal Self Enrollment Referrals: Jayro Chong MD [Primary Care Provider] - 1-2 Weeks Home Medications: Ambulatory Orders Aliskiren Fumarate [Tekturna] 300 mg PO BEDTIME 12/21/14 Aspirin [Baby Aspirin] 81 mg PO DAILY 12/21/14 Carvedilol [Coreg] 12.5 mg PO DAILY 12/21/14 Cholecalciferol [Vitamin D3] 5,000 unit PO DAILY 12/21/14 Levothyroxine Sodium 150 mcg PO DAILY 12/21/14 Metformin HCl [Glucophage] 1,000 mg PO BID 12/21/14 Pramipexole Dihydrochloride [Pramipexole Dihydrochlori] 0.25 mg PO BID 12/21/14 Ramipril [Altace] 40 mg PO DAILY 12/21/14 Rosuvastatin Calcium [Crestor] 10 mg PO DAILY 12/21/14 Sitagliptin Phosphate [Januvia] 100 mg PO DAILY 12/21/14 Fenofibric Acid [Trilipix] 135 mg PO DAILY 12/22/14 Azithromycin 500 mg PO DAILY #7 tab 08/14/15 Ipratropium/Albuterol Inhaler [Combivent Respimat 20-100 Mcg/Act] 2 puff INH RTQID #1 inh 08/14/15 predniSONE [Prednisone] 20 mg PO DAILY #5 tab 08/14/15 Critical Care Note - Critical Care Note Total Time (mins): 45 Comments: PT WITH ACUTE CONFUSION, FOUND TO HAVE NSTEMI, HYPERCALCEMIA, ACUTE ON CHRONIC RENAL FAILURE WITH PRE-RENAL AZOTEMIA, HYPONATREMIA. MULTIPLE CONSULTANTS, IV HEPARIN BOLUS AND DRIP, IV FLUID RESUSCITATION. Transfer to Outside Facility - Transfer Information Accepting Facility: [facility] Reason for Transfer: specialized care not available - WILL NEED CARDIOLOGY EVAL , ONCOLOGY EVAL
--- NOTE | 2017-10-04 12:19 | RAD ---
EXAM DESCRIPTION: Chest,1 View CLINICAL HISTORY: WEAKNESS COMPARISON: Chest radiograph dated August 14, [address] dated September 30, 2017. Findings/impression: Single upright portable frontal view of the chest. Right chest [id number] with distal tip projecting over the atriocaval junction. Cardiac silhouette shows normal heart size. Mild prominence of the left hilar region, compatible with left hilar adenopathy on comparison CT thorax of September 30, 2017. Lung volumes are hypoinflated with associated bronchovascular crowding. Minimal linear opacities within the bilateral lung bases most likely represent subsegmental atelectasis. Otherwise, lungs are clear without definite focal consolidative infiltrates. Bilateral costophrenic angles are sharp. No pneumothorax. Electronically signed by: Nael Brown MD 10/04/2017 12:18 PM [facility]
[2017-10-04] MEDS ORDERED: ASPIRIN (CHEWABLE) 81 MG TAB PO ONE (13:01)
--- NOTE | 2017-10-04 13:04 | CT ---
EXAM DESCRIPTION: Head: Computed Tomography. CLINICAL HISTORY: AMS, RECENT DX OF METASTATIC DZ . Multiple lytic lesions in the axial and appendicular skeleton. COMPARISON: CT abdomen and pelvis with contrast 09/30/2017. TECHNIQUE: Non-helical axial scans through the skull and brain, at 5.0 mm intervals, non-contrast. Axial 2.5 mm nonhelical reconstructions and coronal and sagittal 2.0 mm nonhelical reconstructions. Total Exam DLP: 967.47 mGy-cm. This exam was performed according to our departmental dose-optimization program which includes automated exposure control, adjustment of the mA and/or kV according to patient size and/or use of iterative reconstruction technique; to reduce radiation dose to as low as reasonably achievable (ALARA). FINDINGS: No hemorrhage, no mass-effect, and no midline shift. Normal byrd-white matter differentiation. No abnormal radiodense material in the brain parenchyma. Vascular calcifications small on the left anterior intracranial ICA; physiologic calcifications in the pineal gland and choroid plexus. No effacement or displacement of the ventricles, CSF spaces, or subdural spaces. No extra axial fluid collection or hemorrhage. Included paranasal sinuses and mastoid air cells are well - aerated. Lytic lesions are noted in the inner table of the skull bilateral frontal bones, posterior right parietal bone near the vertex, bilateral frontal and parietal bones medullary cavity at the vertex, left occipital bone medullary cavity. IMPRESSION: 1. No hemorrhage, no mass effect, no midline shift. Normal CT scan of the head without IV contrast. 2. 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 3. CT scans are insensitive for detecting small CVAs in the first 24 hours after onset. Evaluation of the brain stem is also limited. Also limited evaluation for small focal metastatic lesions, brain parenchyma. If symptoms persist, consider MRI scan of the brain with diffusion imaging, and post IV gadolinium MRI. 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
[2017-10-04] MEDS ORDERED: HEPARIN SODIUM (PORCINE) 5,000 U/ML VIAL IV ONE (13:10)
[2017-10-04] MEDS ORDERED: HEPARIN PREMIX 25,000 UNITS in PREMIX BAG 1 BAG IVS SCH (13:15)
[2017-10-04] MEDS ORDERED: HEPARIN PREMIX 500 ML ONE (14:12)
[2017-10-04 16:14] VITALS: BP 130/68
[2017-10-04 16:23] VITALS: TEMP 98.6; O2SAT 96
== END 2017-10-04 16:00 | disposition short-term general hospital (02) ==
LOC: ER 11:19
DX: I21.4 Non-ST elevation (NSTEMI) myocardial infarction (principal); E83.52 Hypercalcemia; G93.41 Metabolic encephalopathy; E87.1 Hypo-osmolality and hyponatremia; N17.9 Acute kidney failure, unspecified; I10 Essential (primary) hypertension; Z87.891 Personal history of nicotine dependence; Z85.51 Personal history of malignant neoplasm of bladder; Z98.61 Coronary angioplasty status; Z79.82 Long term (current) use of aspirin
CPT/HCPCS: 36415; 70450; 71045; 80053; 80301; 80320; 80329; 83605; 84484; 85025; 85610; 85730; 93005; J1644; J7030